=== PATIENT | female | born 1960 | race Caucasian/White ===

== ENCOUNTER → 2025-03-08 | Outpatient (REF) | payer MEDICARE, OTHER | LOC: M LAB REF 17:55 | PROVIDERS: ATTEND Plastic Surgery Surgery of the Hand | DX: D22.39 Melanocytic nevi of other parts of face (principal) ==

== ENCOUNTER → 2025-06-26 | Outpatient (CLI) | payer MEDICARE, MEDICAID ==
[~2025-06-26] MED LIST: ISOVUE-370 76% 100 ML VIAL As Ordered ONE
== END ==
LOC: M RAD 10:39
PROVIDERS: ATTEND Surgery Vascular Surgery
DX: R60.0 Localized edema (principal)
CPT/HCPCS: 72191; Q9967

== ENCOUNTER → 2025-07-04 | Outpatient (CLI) | payer MEDICARE, MEDICAID | LOC: M RAD 14:24 | PROVIDERS: ATTEND Physician Assistant | DX: R60.0 Localized edema (principal) ==